=== PATIENT | male | born 1945 | race Caucasian/White ===

== ENCOUNTER 2016-09-12 09:35 | Emergency (ER) | payer MEDICARE ==
--- NOTE | 2016-09-12 10:08 | ED Physician Chart ---
Chief Complaint/HPI - Patient Information Date Seen:: 09/12/16 Time Seen:: 09:40 Chief Complaint:: Alcohol intoxication History of Present Illness:: Brought in by ambulance because pt was found to be intoxicated in the front porch of his home. Pt speaks clearly but with strong alcoholic breath. Pt denies any bodily pain or discomfort and is in no distress. H & P are limited because pt is intoxicated and is not fully cooperative. Allergies:: Allergies Allergy/AdvReac Type Severity Reaction Status Date / Time No Known Allergies Allergy Verified 09/12/16 09:48 Vitals:: Vital Signs - 8 hr 09/12/16 09:37 Temp 96.8 F HR 80 RR 18 BP 116/51 O2 Sat % 98 Historian:: Patient Family MD/PCP:: unknown LMP:: N/A Review:: Nurse's Note Reviewed Review of Systems - Review of Systems General/Constitutional: Other (Pt does not cooperate for ROS) Past Medical History - Past Medical History Past Medical History: Other (Alcoholism with alcoholic liver disease.) Family History: Other (Pt does not cooperate to provide info on FHx.) Social History: Other (Pt does not cooperate to provide info on SHx.) Surgical History: other (Pt does not cooperate to provide info on Surgical Hx.) Medication: Reviewed Family Medical History - Family Member Mother History Unknown: Yes Physical Exam - Physical Examination General/Constitutional: Awake, Well-developed, well-nourished, Alert, No distress Other Gen/Cons comments:: Breathes comfortably, speaks clearly, but uncooperative. Pt has strong alcoholic breath. Head: Atraumatic Eyes: Lids, conjuctiva normal, PERRL, EOMI Other Eyes comments:: except mild scleral icterus noticed. Skin: No ecchymosis, No lymphadenopathy ENMT: External ears, nose nl, Nasal exam nl, Oropharynx nl, Tonsils nl Neck: Nontender, Full ROM w/o pain, No JVD, No nuchal rigidity, No mass, No stridor Respiratory: Nl effort/Exclusion, Clear to Auscultation, No Wheeze/Rhonchi/Rales Cardio Vascular: RRR, No murmur, gallop, rubs GI: No tenderness/rebounding/guarding, No organomegaly, No hernia, Normal BS's, Nondistended, No mass/bruits, No McBurney tenderness Other GI comments:: Distension with fluid waves that are consistent with ascites. Other Extremities comments:: Diffuse edema noticed in both LE's. No erythema, unusual warmth, or open wounds. Negative Bárbara's and Matt signs. Palpable distal pulses. Neuro/Psych: Alert/oriented (knows his name.) Other Neuro/Psych comments:: Spontaneous movements noticed in all 4 extremities. Pt does not cooperate for full neurological exam. Misc: normal gait, Normal back, No paraspinal tenderness Labs/Radiology/EKG Results - Lab Results Results: Laboratory Tests 09/12/16 09/12/16 09/12/16 10:25 10:25 10:25 WBC 6.4 RBC 3.31 L Hgb 12.2 L Hct 35.0 L MCV 105.7 H MCH 36.8 H MCHC Differential 34.8 RDW 15.5 Plt Count 114 L MPV 6.2 Band Neutrophils % 1 Neutrophils (Manual) 85 H Lymphocytes 2 L Monocytes 12 H Platelet Estimate DECREASED PLATELETS Platelet Morphology NORMAL Anisocytosis 1+ Macrocytosis 1+ RBC Morph Micro Appear ABNORMAL PT 15.7 H INR 1.48 H PTT (Actin FS) 32.6 Sodium 130 L Potassium 4.1 Chloride 99 Carbon Dioxide 22.1 Anion Gap 13.0 BUN 12 Creatinine 0.5 L Est GFR ( Amer) TNP Est GFR (Non-Af Amer) TNP BUN/Creatinine Ratio 24.0 Glucose 123 H Calcium 9.3 Total Bilirubin 4.1 H AST 45 H ALT 21 Alkaline Phosphatase 141 H Ammonia Total Protein 6.9 Albumin 2.9 L Globulin 4.0 Albumin/Globulin Ratio 0.7 L Ethyl Alcohol 155 H 09/12/16 10:25 WBC RBC Hgb Hct MCV MCH MCHC Differential RDW Plt Count MPV Band Neutrophils % Neutrophils (Manual) Lymphocytes Monocytes Platelet Estimate Platelet Morphology Anisocytosis Macrocytosis RBC Morph Micro Appear PT INR PTT (Actin FS) Sodium Potassium Chloride Carbon Dioxide Anion Gap BUN Creatinine Est GFR ( Amer) Est GFR (Non-Af Amer) BUN/Creatinine Ratio Glucose Calcium Total Bilirubin AST ALT Alkaline Phosphatase Ammonia 57 H Total Protein Albumin Globulin Albumin/Globulin Ratio Ethyl Alcohol ED Septic Shock - . Is Septic Shock (SBP<90, OR Lactate>4 mmol\L) present?: No - <6hrs of presentation: Vital Signs: Vital Signs - 8 hr 09/12/16 09:37 Temp 96.8 F HR 80 RR 18 BP 116/51 O2 Sat % 98 Reassessment (Disposition) - Reassessment Reassessment:: 1510 Pt has been repeatedly evaluated. He has been alert and oriented x 3. Pt denies any pain. Pt states that he is a patient under the care at [facility] in [facility]. He has h/o alcohol liver disease with chronic ascites. He reported that he had recent paracentesis with ascitic fluid removal in about last 2 weeks. Pt requests to leave now and does not want further observation/ management in hospital. Pt preferred to follow with his physcians at the [facility]. His friend Mr. Hardeep Mercer will drive him home and care for him. Lab findings have been reviewed with pt. Pt has been advised to stop alcohol use and to enroll in an alcohol detox program . Pt acknowledges understanding and appreciates our effort in caring for him. Reassessment Condition:: Improved - Diagnosis Diagnosis:: Alcoholic intoxication, stable and resolving. Alcholic live disease with ascites, coagulopathy, hypoalbuminemia, chronic anemia. Stable. - Aftercare/Follow up Instructions Aftercare/Follow-Up Instructions:: Refer to Discharge Instructions Notes:: Pt has been advised to stop alcohol use and to enroll in alcohol detox program. F/U with PCP at [facility] in one day for recheck with repeat lab studies: CBC, CMP, ammonia level. Return to ER immediately if condition worsens or if any further questions/problems. Medication Prescribed:: None - Patient Disposition Discharge/Transfer:: Home Time:: 15:25 Condition at Disposition:: Stable, Improved ED Discharge Plan - Patient Disposition Admit/Discharge/Transfer: PT DISCHARGED HOME Condition at Disposition: Improved Instructions: Alcoholic Liver Disease, [id number], Chronic Alcoholism, Ascites Accepting Physician: , Primary [Other]
[2016-09-12] MEDS ORDERED: Multivitamin Inj 10 ML, Thiamine HCL 100 MG, Magnesium Sulfate 2 GM, Folic Acid 1 MG in... IV ONE (10:15)
[2016-09-12] MEDS ORDERED: Thiamine 100 mg/mL 2mL Vial ONE (10:21)
[2016-09-12] MEDS ORDERED: Magnesium Sulfate 1 gm/2 mL 2mL Vial IV ONE (10:22)
[2016-09-12] MEDS ORDERED: Multivitamin Inj 10 mL Vial IV ONE (10:22)
[2016-09-12 10:31] LABS: HEMOGLOBIN 12.2 gm/dL (12.6-17.4); RED BLOOD COUNT 3.31 Mil/cmm (3.80-5.80)
[2016-09-12 10:44] LABS: WHITE BLOOD COUNT 6.4 Th/cmm (4.8-10.8)
[2016-09-12 10:45] LABS: MEAN CELL VOLUME 105.7 fl (80-99); MEAN CORPUSCULAR HEMOGLOBIN 36.8 pg (27.0-31.0); MEAN CORPUSCULAR HGB CONC 34.8 pg (28.0-36.0); MEAN PLATELET VOLUME 6.2 fl; PLATELET COUNT 114 Th/cmm (150-400); RED CELL DISTRIBUTION WIDTH 15.5 % (11.5-20.0)
[2016-09-12 10:50] LABS: INR 1.48 (0.5-1.4); PROTHROMBIN TIME (TEST) 15.7 SECONDS (9.5-11.5)
[2016-09-12 10:52] LABS: ALB/GLOB RATIO 0.7 (1.0-1.8); ALKALINE PHOSPHATASE 141 U/L (34-104); BILIRUBIN,TOTAL 4.1 mg/dL (0.3-1.0); BUN - UREA NITROGEN 12 mg/dL (7-25); CALCIUM SERUM 9.3 mg/dL (8.6-10.3); CARBON DIOXIDE 22.1 mEq/L (21.0-31.0); CHLORIDE 99 mEq/L (98-107); CREATININE - SERUM 0.5 mg/dL (0.7-1.3); GLUCOSE 123 mg/dL (70-105); POTASSIUM SERUM 4.1 mEq/L (3.5-5.1); SGOT 45 U/L (13-39); SGPT/ALT 21 U/L (7-52); SODIUM SERUM 130 mEq/L (136-145)
[2016-09-12 11:04] LABS: ANISOCYTOSIS 1+; BAND NEUTROPHILE 1 % (0-10); NEUTROPHILS 85 % (40-80); PLATELET ESTIMATE DECREASED PLATELETS (NORMAL); PLATELET MORPHOLOGY NORMAL (NORMAL); TOTAL CELLS COUNTED 100
== END 2016-09-12 15:45 | disposition home or self-care (01) ==
LOC: ER 09:35
DX: F10.129 Alcohol abuse with intoxication, unspecified (principal); E88.09 Other disorders of plasma-protein metabolism, not elsewhere classified; D64.9 Anemia, unspecified; R18.8 Other ascites
CPT/HCPCS: 99285; 96365; 96366; 36415; 85007; 85027; 85610; 80320; 82140; 80053; J3411; J3475; J7030; X6226; X6598